=== PATIENT | female | born 1950 | race Caucasian/White ===

== ENCOUNTER 2018-08-06 14:06 | Outpatient (CLI) | payer MEDICARE, BC ==
--- NOTE | 2018-08-06 15:35 | RAD ---
LUMBAR SPINE 3 VIEWS WITH FLEXION/EXTENSION: COMPARISON: None. FINDINGS: Mild straightening of the lumbar spine. Mild narrowing of L3-4, L4-5, and L5-S1 disk spaces. No sig nificant listhesis. No translation with flexion or extension. IMPRESSION: No significant translation with flexion or extension. POS: [facility]
== END 2018-08-06 14:07 | disposition home or self-care (01) ==
LOC: TBSIIMAG 14:06
PROVIDERS: ATTEND Neurological Surgery
DX: M51.16 Intervertebral disc disorders with radiculopathy, lumbar region (principal); M48.062 Spinal stenosis, lumbar region with neurogenic claudication
CPT/HCPCS: 72100

== ENCOUNTER 2018-09-12 09:49 | Day surgery (SDC) | payer MEDICARE, BC ==
[2018-09-11 11:14] VITALS: BMI 36.6
--- NOTE | 2018-09-12 08:33 | HP ---
HISTORY OF PRESENT ILLNESS: This is a 68-year-old female who reports to our office for evaluation of low back and right leg pain. The patient states that in the 80s, she was thrown from a horse and has had back pain ever since. She had a laminectomy in 1993, which went well. She continues to have low back pain along with L3 radiculopathy, worse on the right than the left. This started severely in June. The patient states she can hardly walk any distance and if she does, she needs to lean on something. She has been unable to go shopping for groceries at all in the last three weeks. She states that the top of her right foot will go to sleep and tingle at times. She has the right hip flexion weakness, walks with a limp and a forward flexed gait. The patient denies physical therapy or injections. Has been taking Tylenol, Aleve, and gabapentin for pain relief. REVIEW OF SYSTEMS: A 10-point review of systems has been completed and is negative other than stated in the above HPI. PAST MEDICAL HISTORY: Allergies and headaches. SURGICAL HISTORY: Tonsillectomy 1959, laminectomy 1993, hysterectomy 2003, hernia repair 2007. FAMILY HISTORY: Father is . Mother is , diagnosed with stroke. Children alive. SOCIAL HISTORY: The patient is a nonsmoker. Does not drink alcohol or use any other illicit drugs. She is sexually active. MEDICATIONS: Gabapentin. ALLERGIES: ANACIN. PHYSICAL EXAMINATION: CONSTITUTION: Well-appearing well-nourished, alert. NEUROLOGIC: Alert and oriented x3. Speech spontaneous and fluent. Normal fund of knowledge. RESPIRATIONS: Normal work of breathing on room air. CRANIAL NERVES: Grossly intact. Lower extremities 5/5 bilateral strength, hip flexion, knee flexion, knee extension, dorsiflexion, plantar flexion, EHL right radiculopathy. Negative single leg raise bilateral. Positive hip rotation. Pain and tender to palpate lumbar spine. Deep tendon reflexes diminished bilaterally. Negative Babinski. No clonus. Sensory: Increased sensitivity in the anterior thigh on the right. Gait, and station: Standing slow, limp right leg, forward flexed at the hips. IMAGING: Stenosis L2-3 and L3-4 herniated pulposus with compression of the right L3 nerve root. ASSESSMENT AND PLAN: Lumbar stenosis without neurogenic claudication, radiculopathy due to lumbar herniated nucleus pulposus and lumbar back pain. Dr. Nava has offered surgery, laminectomy 2 through 4, and microdiskectomy 3, 4. The patient states that she understands the risks of surgery and is willing to proceed. Job ID: [id number]
[2018-09-12 11:02] LABS: #Basophils 0.1 thou/uL (0.0-0.2); #Eosinphils 0.2 thou/uL (0.0-0.7); #Lymphocytes 1.8 thou/uL (1.20-3.40); #Monocytes 0.7 thou/uL (0.11-0.59); #Neutrophils 6.4 thou/uL (1.40-6.50); %Basophils 0.9 % (0.0-1.0); %Eosinophils 2.5 % (0.0-10.0); %Lymphocytes 19.5 % (21.0-51.0); %Monocytes 7.9 % (0.0-10.0); %Neutrophils 69.2 % (42.0-75.0); Hemoglobin 15.4 g/dL (12.0-16.0); Mean Corpuscular HGB CONC 32.3 g/dL (32.0-36.0); Mean Platelet Volume 7.8 fL (7.4-10.4); Platelet Count 326 thou/uL (130-400); RBC Distribution Width 13.7 % (11.5-14.5); Red Blood Cell (RBC) Count 5.14 mill/uL (4.20-5.40); White Blood Cell (WBC) Count 9.3 thou/uL (4.8-10.8)
[2018-09-12 11:04] LABS: Prothrombin Time 13.2 SEC (12.0-14.7)
[2018-09-12 11:05] LABS: PTT 30.1 SEC (22.9-36.1)
[2018-09-12] MEDS ORDERED: Thrombin 5000 UNITS/5 ML VIAL ONE (12:55)
[2018-09-12] MEDS ORDERED: Sodium Chloride 0.9% 10 ML ONE (12:55)
[2018-09-12] MEDS ORDERED: Fentanyl 100 MCG/2 ML VIAL ONE ×3 (12:56→16:00)
[2018-09-12] MEDS ORDERED: Midazolam HCl 2 mg/2 ml Vial ONE (12:57)
[2018-09-12] MEDS ORDERED: Bupivacaine HCl 0.5%/Epinephrine 1:200,000/PF 30 ml Vial ONE (14:03)
[2018-09-12] MEDS ORDERED: Rocuronium Bromide 10 MG/ML (10ML VIAL) ONE (14:43)
[2018-09-12] MEDS ORDERED: Ondansetron PF 4 MG/2 ML Vial ONE (14:43)
[2018-09-12] MEDS ORDERED: Lidocaine 1% PF 5 ML VIAL ONE (14:43)
[2018-09-12] MEDS ORDERED: Dexamethasone 20 MG/5 ML VIAL ONE (14:43)
[2018-09-12] MEDS ORDERED: PROPOFOL 200 MG/20 ML VIAL ONE (14:43)
[2018-09-12] MEDS ORDERED: PHENYLEPHRINE-NS 100 MCG/ML 10 ML SYRINGE ONE (14:43)
--- NOTE | 2018-09-12 22:34 | OP ---
DATE OF PROCEDURE: 09/12/2018 METAL STAMPER: Tiffany Troy PA-C PREOPERATIVE INDICATION: Treat pain and prevent neurological deterioration. PREOPERATIVE DIAGNOSES: Lumbar stenosis with neurogenic claudication, right L3 radiculopathy from intervertebral disk herniation at L3-L4, migrated superiorly into the L3 nerve root foramina. POSTOPERATIVE DIAGNOSES: Lumbar stenosis with neurogenic claudication, right L3 radiculopathy from intervertebral disk herniation at L3-L4, migrated superiorly into the L3 nerve root foramina. PROCEDURES PERFORMED: Decompressive laminectomy, medial facetectomy, foraminotomy L2-L3, L3-L4, microdiskectomy right L3-L4, operating microscope. PREOPERATIVE MEDICATIONS: Ancef 2 g IV. DRAIN NUMBER: Zero. DRAIN TYPE: None. DESCRIPTION OF PROCEDURE: The patient was brought to the operating room. General endotracheal anesthesia was induced. The patient was positioned prone on the operating table with her chest and hips supported by gel-filled chest rolls. A lateral fluoro radiograph was used to plan our incision. The lumbar skin was sterilely prepped and draped. We opened with a 10 blade knife and controlled bleeding with bipolar and monopolar cautery. We used monopolar cautery to dissect through subcutaneous tissues to the thoracodorsal fascia. We incised the fascia in the midline and reflected the paraspinal muscles off the spinous process and lamina of L2 and L3 and the superior portion of the lamina of L4. Self-retaining retractors were placed and a lateral fluoro radiograph confirmed the levels upon which we were operating. We then used an Adson rongeur to remove the L2, L3 spinous process and to thin the lamina. 3 mm Kerrison rongeurs were used to fashion a laminectomy from L2 to L4. We widened our laminectomy defect until we were lateral to the thecal sac. We undermined the lateral recesses by performing medial facetectomies at L2-L3 and L3-L4 bilaterally until a Cole ball probe could pass through the lateral recess. We then brought the operative microscope into the field. Under microscopic magnification and using microsurgical techniques, we carefully retracted the thecal sac medially from the right toward the center of the canal at L3-L4. There was a disk fragment under the L3 nerve root in the foramen. We gently coagulated the surface of the disk, incised it and disk fragments came out under some pressure. We swept under the nerve root and under the thecal sac until multiple fragments of disk were removed. We probed and found a hole in the annulus fibrosus, through which the disk had herniated. We reached into the disk space with pituitary rongeurs and removed all loose fragments of disk. The remainder of the disk was firmly adherent to the endplates. We passed a ball probe out the L3 nerve root foramina above and below the nerve root and found no further impingement. We irrigated copiously with bacitracin irrigation. We controlled the epidural bleeding with gentle bipolar cautery and waxed the bone edges. We infused local anesthetic in the paraspinal muscles. We treated the wound with vancomycin powder and we closed in anatomical layers. This was a clean case, no contamination. Job ID: [id number]
== END 2018-09-12 18:44 | disposition home or self-care (01) ==
LOC: SDC 09:49
PROVIDERS: ATTEND Neurological Surgery
PROC: 0ST20ZZ Resection of Lumbar Vertebral Disc, Open Approach (ICD-10-PCS; principal; 2018-09-12)
PROC: 01NB0ZZ Release Lumbar Nerve, Open Approach (ICD-10-PCS; 2018-09-12)
DX: M48.062 Spinal stenosis, lumbar region with neurogenic claudication (principal); M51.16 Intervertebral disc disorders with radiculopathy, lumbar region; Z79.899 Other long term (current) drug therapy; Z88.8 Allergy status to other drugs, medicaments and biological substances
CPT/HCPCS: 36415; 76000; 85025; 85610; 85730; J0670; J0690; J1100; J2001; J2250; J2405; J2704; J3010; J3370; J3490